=== PATIENT | female | born 1960 | race Asian ===

== ENCOUNTER → 2023-12-27 | Outpatient (CLI) | payer OTHER ==
[2023-12-27 15:57] LABS: BASOPHILS ABSOLUTE AUTO 0.05 K/mm3 (0.00-0.23); BASOPHILS PERCENT AUTO 1 % (0-2); EOSINOPHILS ABSOLUTE AUTO 0.15 K/mm3 (0.00-0.68); EOSINOPHILS PERCENT AUTO 2 % (0-6); Hematocrit 46.2 % (33.0-51.0); IMMATURE GRAN ABSOLUTE AUTO 0.02 K/mm3 (0.00-0.10); IMMATURE GRAN PERCENT AUTO 0 % (0-1); LYMPHOCYTES ABSOLUTE AUTO 2.04 K/mm3 (0.84-5.20); LYMPHOCYTES PERCENT AUTO 26 % (21-46); MONOCYTES ABSOLUTE AUTO 0.27 K/mm3 (0.16-1.47); MONOCYTES PERCENT AUTO 3 % (4-13); Mean Corpuscular HGB 30.7 pg (26.0-34.0); Mean Corpuscular HGB Conc 34.6 g/dL (31.5-36.5); Mean Corpuscular Volume 89 fL (80-100); Mean Platelet Volume 10.1 fL (9.1-12.4); NEUTROPHILS ABSOLUTE AUTO 5.38 K/mm3 (1.96-9.15); NEUTROPHILS PERCENT AUTO 68 % (41-73); Platelet Count 263 K/mm3 (150-400); RDW Coefficient Variation 11.9 % (11.7-14.2); RDW Standard Deviation 38.9 fL (35.1-46.3); Red Blood Cell Count 5.22 M/mm3 (3.80-5.20); White Blood Cell Count 7.91 K/mm3 (4.00-11.30)
[2023-12-27 15:58] LABS: CHOL/HDL RATIO 3.3; Cholesterol 223 mg/dL (50-200); HDL Cholesterol 67 mg/dL (>39); LDL/HDL RATIO 1.7; Low Density Lipoprotein Chol 113 mg/dL (0-110); Triglycerides 217 mg/dL (30-160); Very Low Density Lipoprot Chol 43 mg/dL (6-32)
[2023-12-28 08:10] LABS: A/G RATIO 1.7 (1.2-2.2); BILIRUBIN, TOTAL 0.4 mg/dL (0.0-1.2); CALCIUM, SERUM 9.5 mg/dL (8.7-10.3); CREATININE, SERUM 0.74 mg/dL (0.57-1.00); GLOBULIN, TOTAL 2.7 g/dL (1.5-4.5); POTASSIUM, SERUM 3.5 mmol/L (3.5-5.2); PROTEIN, TOTAL, SERUM 7.3 g/dL (6.0-8.5)
== END | disposition home or self-care (01) ==
LOC: LAB SHORT 12:42 → LAB 12:42
PROVIDERS: Nurse Practitioner Family
DX: E78.5 Hyperlipidemia, unspecified (principal); I10 Essential (primary) hypertension
CPT/HCPCS: 80053; 80061; 84443; 85025

== ENCOUNTER 2024-08-29 12:40 | Emergency (ER) | payer OTHER ==
[~2024-08-29] VITALS: Ht 157.5 cm; Wt 68.0 kg
[2024-08-29 13:02] VITALS: BP 154/85
[2024-08-29 13:54] LABS: BASOPHILS ABSOLUTE AUTO 0.06 K/mm3 (0.00-0.23); BASOPHILS PERCENT AUTO 1 % (0-2); EOSINOPHILS ABSOLUTE AUTO 0.15 K/mm3 (0.00-0.68); EOSINOPHILS PERCENT AUTO 2 % (0-6); Hematocrit 45.2 % (33.0-51.0); Hemoglobin 15.9 g/dL (11.5-16.0); IMMATURE GRAN ABSOLUTE AUTO 0.01 K/mm3 (0.00-0.10); IMMATURE GRAN PERCENT AUTO 0 % (0-1); LYMPHOCYTES PERCENT AUTO 27 % (21-46); MONOCYTES ABSOLUTE AUTO 0.39 K/mm3 (0.16-1.47); MONOCYTES PERCENT AUTO 4 % (4-13); Mean Corpuscular HGB 31.3 pg (26.0-34.0); Mean Corpuscular HGB Conc 35.2 g/dL (31.5-36.5); Mean Corpuscular Volume 89 fL (80-100); Mean Platelet Volume 9.6 fL (9.1-12.4); NEUTROPHILS PERCENT AUTO 67 % (41-73); Platelet Count 251 K/mm3 (150-400); RDW Coefficient Variation 11.6 % (11.7-14.2); RDW Standard Deviation 37.8 fL (35.1-46.3); Red Blood Cell Count 5.08 M/mm3 (3.80-5.20); White Blood Cell Count 9.81 K/mm3 (4.00-11.30)
[2024-08-29 14:15] LABS: Albumin/Globulin Ratio 0.9 (0.8-1.8); Bilirubin, Total 0.5 mg/dL (0.1-1.0); Bun/Creatinine Ratio 21.3 (12.0-20.0); Calcium, Blood 9.9 mg/dL (8.5-10.1); Creatinine, Blood 0.7 mg/dL (0.40-1.00); Globulin, Blood 4.4 g/dL (2.2-4.0); Potassium, Blood 3.7 mmol/L (3.5-5.5); Total Protein, Blood 8.4 g/dL (6.4-8.2)
[2024-08-29] MEDS ORDERED: AMLODIPINE BES2.5 MG PO (16:44)
[2024-08-29] MEDS ORDERED: MECL25 PO (17:50)
== END 2024-08-29 17:36 | disposition home or self-care (01) ==
LOC: ER 12:40
PROVIDERS: Emergency Medicine
DX: R42 Dizziness and giddiness (principal); I10 Essential (primary) hypertension; Z86.73 Personal history of transient ischemic attack (TIA), and cerebral infarction without residual deficits; Z86.69 Personal history of other diseases of the nervous system and sense organs; Z79.899 Other long term (current) drug therapy
CPT/HCPCS: 80053; 85025; 99283

== ENCOUNTER → 2025-02-15 | Outpatient (CLI) | payer OTHER ==
[~2025-02-15] MED LIST: AMLODIPINE BES2.5 MG PO; MECL25 PO
[2025-02-15 19:25] LABS: BASOPHILS ABSOLUTE AUTO 0.04 K/mm3 (0.00-0.23); BASOPHILS PERCENT AUTO 0 % (0-2); EOSINOPHILS PERCENT AUTO 2 % (0-6); Hematocrit 44.7 % (33.0-51.0); Hemoglobin 15.5 g/dL (11.5-16.0); IMMATURE GRAN ABSOLUTE AUTO 0.02 K/mm3 (0.00-0.10); IMMATURE GRAN PERCENT AUTO 0 % (0-1); LYMPHOCYTES ABSOLUTE AUTO 2.84 K/mm3 (0.84-5.20); LYMPHOCYTES PERCENT AUTO 32 % (21-46); MONOCYTES ABSOLUTE AUTO 0.37 K/mm3 (0.16-1.47); MONOCYTES PERCENT AUTO 4 % (4-13); Mean Corpuscular HGB 31.2 pg (26.0-34.0); Mean Corpuscular HGB Conc 34.7 g/dL (31.5-36.5); Mean Corpuscular Volume 90 fL (80-100); Mean Platelet Volume 10.4 fL (9.1-12.4); NEUTROPHILS ABSOLUTE AUTO 5.51 K/mm3 (1.96-9.15); NEUTROPHILS PERCENT AUTO 62 % (41-73); Platelet Count 264 K/mm3 (150-400); RDW Coefficient Variation 11.6 % (11.7-14.2); RDW Standard Deviation 38.2 fL (35.1-46.3); Red Blood Cell Count 4.97 M/mm3 (3.80-5.20); White Blood Cell Count 8.98 K/mm3 (4.00-11.30)
[2025-02-15 20:02] LABS: Bun/Creatinine Ratio 23.2 (12.0-20.0); Calcium, Blood 9.1 mg/dL (8.5-10.1); Creatinine, Blood 0.73 mg/dL (0.40-1.00); Potassium, Blood 3.4 mmol/L (3.5-5.5)
[2025-02-18 11:19] LABS: HEPATITIS C AB CIA INTERP Negative (Negative); HEPATITIS C ANTIBODY CIA INDEX 0.15 IV
== END ==
LOC: LAB SHORT 19:03 → LAB 19:03
PROVIDERS: Nurse Practitioner Family
DX: Z11.59 Encounter for screening for other viral diseases (principal); I10 Essential (primary) hypertension
CPT/HCPCS: 80048; 85025; 86803

== ENCOUNTER → 2025-08-20 | Outpatient (CLI) | payer OTHER ==
[2025-08-20 19:33] LABS: BASOPHILS ABSOLUTE AUTO 0.06 K/mm3 (0.00-0.23); BASOPHILS PERCENT AUTO 1 % (0-2); EOSINOPHILS ABSOLUTE AUTO 0.21 K/mm3 (0.00-0.68); EOSINOPHILS PERCENT AUTO 2 % (0-6); Hematocrit 43.2 % (33.0-51.0); Hemoglobin 15.0 g/dL (11.5-16.0); IMMATURE GRAN ABSOLUTE AUTO 0.02 K/mm3 (0.00-0.10); IMMATURE GRAN PERCENT AUTO 0 % (0-1); LYMPHOCYTES ABSOLUTE AUTO 2.96 K/mm3 (0.84-5.20); LYMPHOCYTES PERCENT AUTO 31 % (21-46); MONOCYTES ABSOLUTE AUTO 0.36 K/mm3 (0.16-1.47); MONOCYTES PERCENT AUTO 4 % (4-13); Mean Corpuscular HGB Conc 34.7 g/dL (31.5-36.5); Mean Corpuscular Volume 91 fL (80-100); NEUTROPHILS ABSOLUTE AUTO 6.07 K/mm3 (1.96-9.15); NEUTROPHILS PERCENT AUTO 63 % (41-73); NRBC ABSOLUTE 0.00 K/mm3 (0.00-0.02); NRBC Auto 0.0 /100 WBC (0.0-0.2); Platelet Count 262 K/mm3 (150-400); RDW Coefficient Variation 11.7 % (11.7-14.2); RDW Standard Deviation 39.2 fL (35.1-46.3)
[2025-08-21 01:13] LABS: Alanine Aminotransfer (ALT/SGP 27 U/L (12-78); Albumin, Blood 4.2 g/dL (3.4-5.0); Albumin/Globulin Ratio 1.2 (0.8-1.8); Anion Gap 8 mmol/L (3-11); Aspartate Aminotrans (AST/SGOT 17 U/L (12-37); Bilirubin, Total 0.4 mg/dL (0.1-1.0); Blood Urea Nitrogen 15 mg/dL (8-24); CHOL/HDL RATIO 3.3; CO2, Blood 32 mmol/L (21-32); Calcium, Blood 9.3 mg/dL (8.5-10.1); Chloride, Blood 101 mmol/L (98-108); Cholesterol 174 mg/dL (50-200); Creatinine, Blood 0.87 mg/dL (0.40-1.00); Globulin, Blood 3.5 g/dL (2.2-4.0); Glucose, Blood 174 mg/dL (70-99); HDL Cholesterol 52 mg/dL (>39); LDL/HDL RATIO 1.8; Low Density Lipoprotein Chol 93 mg/dL (0-110); Potassium, Blood 4.0 mmol/L (3.5-5.5); Sodium, Blood 137 mmol/L (136-145); Thyroid Stimulating Hormone 2.630 uIU/mL (0.360-4.800); Total Protein, Blood 7.7 g/dL (6.4-8.2); Triglycerides 145 mg/dL (30-160); Very Low Density Lipoprot Chol 29 mg/dL (6-32)
== END ==
LOC: LAB 17:11 → LAB SHORT 17:11
PROVIDERS: Nurse Practitioner Family
DX: I10 Essential (primary) hypertension (principal); E04.2 Nontoxic multinodular goiter; E78.5 Hyperlipidemia, unspecified
CPT/HCPCS: 80053; 80061; 83036; 84443; 85025